=== PATIENT | female | born 1945 | race Caucasian/White ===

== ENCOUNTER 2016-12-20 06:51 | Day surgery (SDC) | payer MEDICARE, OTHER ==
[~2016-12-20 06:51] MED LIST: RINGER'S SOLUTION,LACTATED 1,000 ML IV PRN; ceFAZolin SODIUM 2 GM in DEXTROSE 5 % IN WATER 50 ML IV PRN
[2016-12-20] MEDS ORDERED: RINGER'S SOLUTION,LACTATED 1,000 ML IV ONE (07:30)
[2016-12-20] MEDS ORDERED: RINGER'S SOLUTION,LACTATED 1,000 ML IV PRN (09:51)
[2016-12-20 11:30] VITALS: BP 132/69
--- NOTE | 2016-12-20 18:20 | OR ---
Operative Report - Dictated Report Narrative: OPERATIVE REPORT DATE OF OPERATION: 12/20/2016 PREOPERATIVE DIAGNOSIS: No recent dedicated colon studies. Family history of colon cancer POSTOPERATIVE DIAGNOSIS: 3 mm polyp at 20 cm (pathology pending). Indeterminate area of mucosal change in the rectum (pathology pending). Significant sigmoid diverticulosis OPERATION: Colonoscopy with hot biopsy forceps polypectomy at 20 cm and biopsy in the rectum SURGEON: Adrien Malik MD ANESTHESIA: MAC Tristin Byers CRNA INDICATIONS FOR PROCEDURE: The patient is a 71-year-old female who presents self-referred for colon surveillance. She had diverticulosis and a small focal lymphoid aggregate on colonoscopy in 2011. She does have problems with constipation and uses MiraLAX 17 g po every other day. Her brother had colon cancer at age 40. FINDINGS: 3 mm area of polypoid change at 20 cm. Indeterminant area of mucosal change in the rectum (pathology pending). Sigmoid diverticulosis NARRATIVE OF PROCEDURE: The patient was identified in the holding area, and prior to the administration of anesthetic, a multidisciplinary timeout was observed. With the patient in the left lateral position and after the administration of intravenous sedation, the perineum was inspected. There was no evidence of pilonidal disease or skin breakdown. The external appearance of the anus was normal. Sphincter tone was good. The flexible fiberoptic colonoscope was inserted into the rectum which was insufflated with air. There was a small area of indeterminate mucosal change which was biopsied and then thoroughly destroyed with electrocautery. The area was seen to be complete and hemostatic. The rectal mucosa and submucosal vascular pattern appeared otherwise normal, the prep was seen to be complete. The scope was advanced through the sigmoid colon, which contained numerous non-impacted noninflamed diverticular openings. There was a small area of polypoid change at 20 cm. This was biopsied and then thoroughly destroyed with electrocautery. The site was seen to be complete and hemostatic. The scope was advanced up the descending colon, and around the splenic flexure where the triangular haustral architecture of the transverse colon was seen. The scope was advanced across the transverse colon, around the hepatic flexure to the cecum, where the confluence of tenia and the ileocecal valve were identified. The mucosa at this level appeared normal. The scope was then slowly withdrawn in a circular fashion so that all aspects of colonic mucosa were inspected. The colon was relatively normal in course and caliber. The haustral architecture appeared well preserved throughout with no evidence of external compression. The mucosa and submucosal vascular pattern appeared normal, specifically there was no gross evidence to suggest colitis or inflammatory bowel disease and no AV malformations were seen. The diverticulosis was moderate in degree and confined primarily to the sigmoid colon. No additional polyps were encountered. The scope was gradually withdrawn to the level of the rectum. As much insufflated air as possible was removed. The scope was withdrawn from the patient and the procedure terminated. The patient tolerated the anesthetic and procedure well without complication and was transferred back to the ambulatory surgery area awake and in stable condition. The patient remained stable throughout a period of postoperative observation. She had some initial abdominal discomfort, however this resolved after passing gas. She was able to tolerate by mouth intake, and was up without assistance. I shared the operative findings with the patient and her and she was given copies of the photographs which appear in the medical record. She was discharged home with instructions not to engage in hazardous activity today, but may resume normal activity tomorrow, and advance diet as tolerated. She is to continue those medications as listed in the history and physical exam. I made arrangements to contact her with the biopsy reports and will make additional recommendations for treatment and follow-up based upon those results. Reviewed and electronically signed u
== END 2016-12-20 06:52 | disposition home or self-care (01) ==
LOC: AMB 06:51
PROVIDERS: ATTEND Surgery
PROC: 0D5E8ZZ Destruction of Large Intestine, Via Natural or Artificial Opening Endoscopic (ICD-10-PCS; 2016-12-20)
PROC: 0DBP8ZX Excision of Rectum, Via Natural or Artificial Opening Endoscopic, Diagnostic (ICD-10-PCS; principal; 2016-12-20 08:00)
DX: Z12.11 Encounter for screening for malignant neoplasm of colon (principal); K63.5 Polyp of colon; K57.30 Diverticulosis of large intestine without perforation or abscess without bleeding; Z68.33 Body mass index [BMI] 33.0-33.9, adult; Z80.0 Family history of malignant neoplasm of digestive organs

== ENCOUNTER 2020-06-16 07:50 | Observation (INO) ==
[~2020-06-16 07:50] MED LIST changes: +MORPHINE SULFATE 15 MG TABLET.SA PO PRN; -RINGER'S SOLUTION,LACTATED 1,000 ML IV PRN; +ROPIVACAINE/CLONIDIN/KETOROLAC 50 ML SYRINGE IJ PRN; +TRANEXAMIC ACID 1,000 MG in NORMAL SALINE 100 ML IV PRN; +ceFAZolin SODIUM 1 GM VIAL IV PRN; -ceFAZolin SODIUM 2 GM in DEXTROSE 5 % IN WATER 50 ML IV PRN
[2020-06-16] MEDS: RINGER'S SOLUTION,LACTATED 1,000 ML IV PRN ×2 (08:08→11:12)
--- NOTE | 2020-06-16 09:06 | ANES ---
Anesthesia Pre Procedure Eval Vitals/Labs: Last Vital Signs Temp 36.0 C 06/16/20 07:55 Pulse 69 06/16/20 07:55 Resp 16 06/16/20 07:55 BP 138/71 06/16/20 07:55 Pulse Ox 99 06/16/20 07:55 HOME MEDICATIONS Calcium Carbonate [Tums] 2 tab PO DAILY 02/21/15 [Last Taken 03/16/15] Ferrous Sulfate [Iron] 325 mg PO DAILY 02/21/15 [Last Taken 03/16/15] Polyethylene Glycol 3350 [Miralax] 17 gm PO Q2D 02/21/15 [Last Taken 03/16/15] Multivitamins [Multivitamin Janie] 1 cap PO DAILY 12/08/16 [Last Taken Unknown] Naproxen Sodium [Aleve] 220 mg PO BID PRN 12/08/16 [Last Taken Unknown] alprazolam 0.25 mg tablet 0.25 mg PO TID PRN #60 tab 06/21/18 [Last Taken Unknown] citalopram 10 mg tablet 10 mg PO DAILY #30 tab 12/10/19 [Last Taken Unknown] glucosamine sulfate 2KCl 1,000 mg tablet 1,500 mg PO BID tab 05/13/20 [Last Taken Unknown] Allergies/Adverse Reactions: Allergies Allergy/AdvReac Type Severity Reaction Status Date / Time No Known Allergies Allergy Verified 06/16/20 08:09 - Planned Procedure Planned Procedure: Left Arthroplasty Total Knee Medication List Reviewed:: Yes Allergies Verified: Yes Medical History (Last Reviewed 06/16/20 @ 09:02 by Tristin Byers CRNA) Achilles bursitis or tendinitis Onset Date: 08/10/12 Bilateral thumb pain Onset Date: Unknown Cough Onset Date: 02/03/12 Lipoma Onset Date: 08/10/12 Pharyngitis, acute Onset Date: Unknown Right knee DJD Onset Date: Unknown Sinusitis, acute Onset Date: Unknown Surgical History (Last Reviewed 06/16/20 @ 09:03 by Tristin Byers CRNA) History of appendectomy Onset Date: 1981 History of carpal tunnel release Onset Date: 08/20/05 Gipple- bilateral. History of colonoscopy Onset Date: 12/20/16 King- hyperplastic. Recheck 5 yrs. tubular adenoma, hyperplastic polyp. Recheck 5 yrs.- 10/01/11, 12/20/16 History of hysterectomy Onset Date: 1981 GHULAM with one ovary removed. History of total knee arthroplasty Onset Date: 03/17/15 Alina-right Status post de Quervain's release surgery Onset Date: 08/20/05 Jamey- left hand Status post trigger finger release Onset Date: 01/30/02 Albert-right trigger thumb release H/O cataract extraction Onset Date: ~11/15/19 11/29/19: Dr. [facility] Family History (Last Reviewed 06/16/20 @ 09:03 by Tristin Byers CRNA) Brother Colon polyps had chemo.(age 40) Sister Alive and well Father , age 92- old age Myocardial infarction Pacemaker Mother , age 92 CHF (congestive heart failure) Dementia - Family Anesthesia History Family History:: no untoward family reactions to anesthesia, no familial bleeding tendencies, no family history of clotting disorders, no family history of premature - Airway/Neck/Teeth Within Normal Limits:: Yes Teeth Condition: intact Neck Exam: full range of motion Mallampatti Score: 2 Thyromental (T-M) distance: > 6 cm Mandibulo Hyoid distance: > 3 cm - Respiratory Respiratory Physical: lungs clear Smoking Status: Never smoker Sleep Apnea currently treated: No Sleep Apnea by current assessment: No - Cardiovascular Tolerate Activity: Fair Heart Sounds: S1 & S2, Regular - Gastrointestinal NPO since: 2399 - Anesthesia Assessment and Plan ASA Class: PS, II Anesthesia Type Plan: Block - Post TKA pain relief, Spinal
[2020-06-16] MEDS ORDERED: BUPIVACAINE HCL/EPINEPHRINE 50 ML VIAL ONE (09:24)
[2020-06-16] MEDS ORDERED: MIDAZOLAM HCL/PF 5 MG/ML VIAL ONE (09:24)
[2020-06-16] MEDS ORDERED: PROPOFOL VIAL IV ONE (09:24)
[2020-06-16] MEDS ORDERED: ceFAZolin SODIUM 1 GM VIAL ONE (09:41)
[2020-06-16] MEDS ORDERED: ROPIVACAINE/CLONIDIN/KETOROLAC 50 ML SYRINGE IJ ONE (09:41)
--- NOTE | 2020-06-16 11:32 | OR ---
Operative Report - Dictated Report Narrative: Date: 06/16/2020 Preoperative diagnosis: Left knee degenerative joint disease. Postoperative diagnosis: Left knee degenerative joint disease. Procedure: Left total knee arthroplasty. Surgeon: Doron Fuller M.D. Chief Of Service: Chava Francois PA-C (provided and essential set of skilled, educated hands that assisted with transfer, positioning, prepping, draping, manipulation, retraction, placement of jigs, injection, insertion of implants, irrigation, closure wounds, and dressings all of which could not be performed by the available surgical crew) Anesthesia: Spinal with regional block and local periarticular joint injection. Complications: None Specimens: Bone. Estimated blood loss: Minimal. Tourniquet time: 70 minutes at 325 millimeters of mercury. Retained implants: Depuy Attune size 4 narrow left lugged cemented posterior stabilized femoral component. Size 3 fixed-bearing cemented tibial platform. 4 by 5 millimeter posterior stabilized cross-linked tibial insert. 35 millimeter medialized patella button. Indications: Mrs. Curry is a 75-year-old female who has had longstanding left knee pain and arthrosis. This patient was followed in my clinic for period of time with significant complaints of left knee pain consistent with arthritic changes. She had failed conservative measures including, but not limited to, activity modification, passage of time, medications, and other conservative measures. Patient wished to proceed with surgical treatment. The risks, benefits, and alternatives were discussed in clinic. The risks of , blood clots, bleeding, infection, nerve/tendon blood vessel/ injury, malposition of components, intraoperative fracture, postoperative limited range of motion, persistent pain, failure of components, and need for additional procedures. Patient wished to proceed consent was obtained after answering all questions. Procedure: After marking the correct extremity on the floor, the patient was taken to the operating room. A timeout was performed. IV antibiotics consisting of Ancef were administered prior to the procedure. A regional followed by spinal anesthetic was induced by anesthesia, per my request, on the operative table with all bony prominences well-padded. Clarke catheter was placed, and a bump was placed under the operative side buttock. SCDs and ZAIRA hose were utilized on the nonoperative leg. A well-padded tourniquet was applied to the operative thigh. The operative leg was then pre-scrubbed with alcohol, prepped, and draped in a standard sterile fashion. After exsanguinating the extremity with an Esmarch bandage, the tourniquet was inflated. After marking out the anterior knee for standard incision centered over the patella, the skin was incised and dissected down to the joint retinaculum. The joint retinaculum was marked out as well as the horizontal axis of the patella, and a standard medial parapatellar arthrotomy was then made. The most proximal aspect of the quadriceps tendon and the patella tendon insertion were protected from release. A partial synovectomy was performed as well as a resection of the infrapatellar fat pad. The distal femoral fat pad proximal to the trochlea was also resected using cautery. The soft tissues were elevated off the medial as pect of the proximal tibia using a Martin elevator ensuring that we did not transect the medial collateral ligament. Upon initial evaluation range of motion was approximately 10 degrees to 130 degrees of flexion. There were signs of advanced arthrosis in the medial, lateral, and patellofemoral joint spaces. There were large marginal osteophytes which were removed with a rongeur. The knee was hyperflexed and the patella was tucked laterally. Protecting the surrounding soft tissues with Homans, an entry drill was placed down the femoral canal using Whitesides line for guidance into the entry point. The intramedullary femoral alignment faisal was utilized in order to cut the distal femur in 5 degrees of valgus resecting 10 millimeters of bone. Next the distal femur was sized to a size 4. A posterior referencing guide was utilized to place the distal femoral cutting block in 3 degrees of external rotation. This was pinned into place. The rotation was confirmed both visually and based on anatomic landmarks. The 4 in 1 cutting jig of the appropriate size was utilized in order to make all bony cuts. The gage wing was used to ensure no notching. Retractors were utilized in order to protect surrounding soft tissues. This cut did not result in any excessive notching. We then cut the box centered over the distal femur. This allowed for resection of the anterior and posterior cruciate ligaments. I then turned my attention to the preparation of the tibia. Using an extra medullary tibial alignment faisal, 3 millimeters of bone was resected off the medial articular surface. This was made perpendicular to the mechanical axis of the joint with the alignment faisal centered over the ankle mortise. The alignment faisal was checked and was noted to be parallel to the mechanical axis, centered over the medial one third of the tibial tubercle, paralleling the anterior surface of the tibia. We then turned our attention to the remaining meniscus and soft tissues. These were removed while protecting the surrounding ligaments and soft tissues. The marginal osteophytes off the anterior, posterior, medial, lateral aspects of the femur and tibia were removed. The tibia was sized out to a size 3. Next the tibia was drilled and punched in an externally rotated position. Next the trial femur and a series of tibial inserts were utilized in order to allow for full extension and maximal flexion. It was found that a 5 millimeter insert gave the best range of motion and stability at multiple flexion points as well as at full extension there was less than 2 mm of gapping both medially and laterally. There is minimal anterior translation with the knee at 90 degrees of flexion and no signs of being able to dislocate the knee. The patella was then prepared. The initial thickness was 21 millimeters. This was reamed down to 12 millimeters parallel to the anterior surface of the patella. It was sized out to a size 35 medialized patella button. This was then drilled and trialed. Without any medial restraint the patella tracked appropriately and did not sublux or dislocate. At this point, it was felt these were the appropriate sized implants, and all trials were removed. The standard periarticular joint injection consisting of ropivacaine, Toradol, and epinephrine were injected into the periarticular joint tissues. The bony surfaces were thoroughly irrigated with a pulsatile-suction saline irrigation device. A bone plug from the prior resected anterior chamfer cut was placed into the drill hole at the distal femur. The bony surfaces were then dried in preparation for placement of the implants. The cement was vacuum mixed per the yarn winder's instructions. The cement was placed on the dry bony surfaces and posterior aspect of the implants. The implants were impacted into place, removing all extruded cement. At this point anesthesia administered tranexamic acid per protocol intravenously. The knee was placed in extension with axial loading with the trial insert while the cement cured. Once the cement cured, all remaining extruded cement was removed. The knee was placed through a range of motion with the trial insert to ensure appropriate range of motion and stability. Final range of motion was approximately 0 to 130 degrees. The knee was again thoroughly irrigated with pulsatile saline lavage. The final polyethylene insert was then impacted into place ensuring no retained soft tissues. The remaining periarticular joint injection was injected. A medium Hemovac drain was placed exiting superior laterally. The knee was then placed over a triangle and the arthrotomy was closed with interrupted #1 Vicryl after thoroughly irrigating the joint. The deep and subcutaneous tissues were closed with interrupted 0 and 3-0 Vicryl respectively. Skin was closed with a running subcutaneous 3-0 Monocryl and Prineo Dermabond dressing. 4 x 4's, Sof-Rol, and a full leg Steven wrap were applied. All sponge, needle, blade, and instrument counts were correct prior to closing the wounds. Postoperative condition: The patient was awoken and transferred to the postanesthesia care unit in stable condition. Plan is to be admitted to the inpatient medical/surgical floor postoperatively for 24 hours of IV antibiotics, physical therapy, occupational therapy, and medical comanagement. Patient will be weightbearing as tolerated with range of motion as tolerated. DVT prophylaxis will be with SCDs, ZAIRA hose, and pharmacological anticoagulation. Anticipated hospital stay is approximately 1-3 days.
[2020-06-16] MEDS ORDERED: diphenhydrAMINE HCL 50 MG/ML VIAL IV PRN (11:33)
[2020-06-16] MEDS ORDERED: ONDANSETRON HCL/PF 2 MG/ML VIAL IV PRN (11:33)
[2020-06-16] MEDS ORDERED: DEXTROSE 5%-LACTATED RINGERS 1,000 ML IV PRN (11:33)
[2020-06-16] MEDS ORDERED: MAG HYDROX/ALUMINUM HYD/SIMETH 30 ML UDC PO PRN (11:33)
[2020-06-16] MEDS ORDERED: ZOLPIDEM TARTRATE 5 MG TABLET PO PRN (11:33)
[2020-06-16] MEDS ORDERED: MAGNESIUM HYDROXIDE 30 ML UDC PO PRN (11:33)
[2020-06-16] MEDS ORDERED: MORPHINE SULFATE 2 MG/ML DISP.SYRIN IV PRN (11:33)
[2020-06-16] MEDS ORDERED: ACETAMINOPHEN 500 MG TABLET PO PRN (11:33)
[2020-06-16] MEDS ORDERED: ALPRAZolam 0.25 MG TABLET PO PRN (11:35)
--- NOTE | 2020-06-16 11:58 | ANES ---
Anesthesia Procedure Note Procedure Note: ANESTHESIA PROCEDURE NOTE Date of Procedure: 06/16/2020 Time of procedure: 10:05 AM. Performed by: MARKEL Cook CRNA, MSN Mathematics Department Chair: Susan Simmons RN. Preprocedure diagnosis: Post left total knee arthroplasty pain. Post procedure diagnosis: Same. Procedure: Left adductor Canal Block. Indications: Post left total knee arthroplasty pain relief. Findings: See below. Details of the procedure: The patient was brought to OR #2 and placed in supine position. The patient's left femoral area to the knee was prepped with chlorhexidine and using ultrasound guidance the left femoral artery and nerve was identified and then followed to the level of the adductor canal. Lidocaine 1% was infiltrated to the skin of the intended injection site. Under ultrasound guidance the saphenous nerve was approached with visualization of a 4 inch shielded block needle. Once saphenous nerve was identified with proximity to the needle tip, the saphenous nerve was surrounded with 25 mL bupivacaine 0.5% with 1-200,000 epinephrine. Please see radiology/ultrasound report for details and retained images of the procedure. EBL: 0 Fluids: N/A. Specimen: N/A. Post procedure condition: The patient tolerated the procedure well. No complications were noted. Thank you for this consultation. Tristin Byers CRNA, ARNP, MSN
--- NOTE | 2020-06-16 12:00 | ANES ---
Post Anesthesia Discharge - Transfer of Care Transfer of Care handoff given to nurse: Yes - Discharge from PACU Discharge from PACU when meets criteria: Yes - Comfortable.
[2020-06-16] MEDS: KETOROLAC TROMETHAMINE 15 MG/ML VIAL IV SCH ×2 (12:52→19:13)
[2020-06-16] MEDS: ceFAZolin SODIUM 1 GM in DEXTROSE 5 % IN WATER 100 ML IV SCH ×4 (12:54→19:12)
--- NOTE | 2020-06-16 15:02 | ANES ---
Post Anesthesia Assessment - Vital Signs Vitals: Last Vital Signs Temp 36.5 C 06/16/20 12:45 Pulse 71 06/16/20 13:30 Resp 16 06/16/20 13:15 BP 115/67 06/16/20 13:30 Pulse Ox 99 06/16/20 13:30 Airway Patency: Normal - Mental Status Level Of Consciousness: Awake, Alert, Appropriate - Pain Level Pain Score: 0 - N/V Assessment Nausea/Vomiting Presence: None Dehydration:: No
[2020-06-16] MEDS: oxyCODONE HCL/ACETAMINOPHEN 1 TAB TABLET PO PRN ×2 (17:18→21:20)
[2020-06-16] MEDS ORDERED: SENNOSIDES/DOCUSATE SODIUM 1 TAB TABLET PO SCH (21:00)
[2020-06-16] MEDS: GLUCOSAMINE SULFATE 1000 MG PO SCH (21:20)
[2020-06-17] MEDS: KETOROLAC TROMETHAMINE 15 MG/ML VIAL IV SCH ×3 (00:40→13:48)
[2020-06-17] MEDS: ceFAZolin SODIUM 1 GM in DEXTROSE 5 % IN WATER 100 ML IV SCH ×2 (00:41)
[2020-06-17] MEDS: oxyCODONE HCL/ACETAMINOPHEN 1 TAB TABLET PO PRN ×2 (03:38→10:16)
[2020-06-17 06:19] LABS: Hematocrit 33.6 % (37.0-47.0); Hemoglobin 10.5 gm/dL (12.5-16.0); Mean Cell Volume 95.2 fl (78-100); Mean Corpuscular Hemoglobin 29.7 pg (27-31); Mean Corpuscular Hgb Conc 31.3 g/dl (32-36); Mean Platelet Volume 9.5 fl (8-12.5); Platelet Count 136 K/mm3 (150-450); Red Blood Count 3.53 M/mm3 (4.2-5.4); White Blood Count 5.5 K/mm3 (4.0-10.5)
[2020-06-17 06:32] LABS: Anion Gap 5.4 mmol/L (6.8-13.8); Calcium * 8.3 mg/dL (7.9-10.9); Carbon Dioxide 29.8 mmol/L (24-32.6); Estimated Creat Clear 48.6; Potassium 4.2 mmol/L (3.4-4.6)
[2020-06-17] MEDS: GLUCOSAMINE SULFATE 1000 MG PO SCH (08:29)
[2020-06-17] MEDS ORDERED: POLYETHYLENE GLYCOL 3350 17 GM PACKET PO SCH (09:00)
[2020-06-17] MEDS ORDERED: MULTIVITAMINS 1 CAP CAPSULE PO SCH (09:00)
[2020-06-17] MEDS ORDERED: CITALOPRAM HYDROBROMIDE 10 MG TABLET PO SCH (09:00)
[2020-06-17] MEDS ORDERED: FERROUS SULFATE 325 MG TABLET PO SCH (09:00)
[2020-06-17] MEDS ORDERED: CALCIUM CARBONATE 500 MG TAB.CHEW PO SCH (09:00)
[2020-06-17] MEDS ORDERED: ENOXAPARIN SODIUM 40 MG/0.4 ML SYRG SC SCH (10:33)
--- NOTE | 2020-06-17 11:57 | DS ---
(1) Status post left knee replacement Problem: Acute (2) Anxiety Problem: Chronic (3) Depression Problem: Chronic Date of Discharge:: 06/17/20 Hospital Course: Mrs. Curry was admitted to the floor after undergoing left total knee arthroplasty. Tolerated this well. Was admitted to the floor postoperatively for 24 hours of IV antibiotics, pain control, medical comanagement, and occupational and physical therapy. OT and PT were consulted to assist with activities of daily living and ambulation. Was made weightbearing as tolerated with range of motion as tolerated. Pain was initially controlled with IV regimen. This was transitioned to oral once tolerating a by mouth intake. Was resumed on home diet and medications. A Clarke catheter was inserted in the operating room which was discontinued by postoperative day 1. A drain was placed intraoperatively into the knee which was discontinued on postoperative day 1. Lovenox, SCDs, and ZAIRA hose were utilized for DVT prophylaxis. Vital signs remained stable to the hospital course. Labs were obtained which showed a final hemoglobin of 10.5 grams. BMP was reviewed and was stable. Physical examination throughout the hospital course showed an extremity that had sensation that was intact to light touch, palpable pulses, a benign wound, motor intact to the toes, ankle, and knee. Knee range of motion was approximately 5 degrees to 40 degrees. Once an oral pain regimen was tolerated and physical therapy goals were met, it was felt that they were stable for discharge to home. Instructions: Continue with weightbearing as tolerated and range of motion as tolerated. It is okay to shower and get the wound wet as long as there is no drainage from the wound. Do not bathe or soak the wound. If there is any drainage from the wound keep the wound clean and dry and cover with dry gauze and tape. Change every 2- 3 days as needed if there is any drainage. Cover wound while showering if there is any drainage. Continue with physical therapy. Resume home diet. Report any fever over 101.5 Fahrenheit, uncontrolled pain, increased drainage, foul odor of drainage, new or increased calf pain or shortness of breath, or any other significant complaints. A 325mg daily aspirin will be started after finishing anticoagulation if not allergic. Continue with ZAIRA hose on the operative extremity until instructed otherwise. No driving until instructed otherwise. Follow up in approximately 2-3 weeks. Procedures Performed: see notes below List Procedures: Left total knee arthroplasty Results and Findings: Lab Pending Results 06/17/20 06:16: WBC 5.5, RBC 3.53 L, Hgb 10.5 L, Hct 33.6 L, MCV 95.2, MCH 29.7, MCHC 31.3 L, RDW 12.0, Plt Count 136 L, MPV 9.5 06/17/20 06:16: Sodium 137, Plasma Sodium 137, Potassium 4.2, Chloride 106, Carbon Dioxide 29.8, Anion Gap 5.4 L, BUN 12, Creatinine 0.80, Est GFR (Non-Af Amer) 74, BUN/Creatinine Ratio 15.0, Random Glucose 100, Calcium 8.3 Disposition: Home self-care Condition: Good Discharge Activity: Activity as tolerated, Weight bearing Discharge Diet: General/regular food Referrals: Mary Miramontes MD [Primary Care Provider] - Additional Patient Instructions (free text): Physical Therapy at [facility] outpatient rehab on TuesdayJune 18 at 2 pm. Follow up [facility] Orthopedic office appointment on TuesdayJuly 08 at 8:30am. Prescriptions (Any new or edited meds): Enoxaparin Sodium [Lovenox] 40 mg SC Q24H #7 disp.syrin Transmission Status: Pending to Cover #[id number] oxyCODONE HCL/ACETAMINOPHEN [Percocet 5 MG/325 MG] 1 - 2 tab PO Q4H PRN #40 tab PRN Reason: Moderate Pain (Pain Scale 4-6) Transmission Status: Sent to Cover #[id number] Sennosides/Docusate Sodium [Senokot-S] 2 tab PO HS #60 tab Transmission Status: Pending to Cover #[id number] Complete Home Medications List: Complete Home Medication List: Calcium Carbonate [Tums] 2 tab PO DAILY 02/21/15 Ferrous Sulfate [Iron] 325 mg PO DAILY 02/21/15 Polyethylene Glycol 3350 [Miralax] 17 gm PO Q2D 02/21/15 Multivitamins [Multivitamin Ajnie] 1 cap PO DAILY 12/08/16 Naproxen Sodium [Aleve] 220 mg PO BID PRN 12/08/16 alprazolam 0.25 mg tablet 0.25 mg PO TID PRN #60 tab 06/21/18 citalopram 10 mg tablet 10 mg PO DAILY #30 tab 12/10/19 glucosamine sulfate 2KCl 1,000 mg tablet 1,500 mg PO BID tab 05/13/20 Enoxaparin Sodium [Lovenox] 40 mg SC Q24H #7 disp.syrin 06/17/20 Sennosides/Docusate Sodium [Senokot-S] 2 tab PO HS #60 tab 06/17/20 oxyCODONE HCL/ACETAMINOPHEN [Percocet 5 MG/325 MG] 1 - 2 tab PO Q4H PRN #40 tab 06/17/20 Amb Orders for Discharge: PT Evaluation and Treatment* Facility: [facility], Location: Rehabilitation Services Forms: Patient Portal Registration
[2020-06-17 12:37] VITALS: BP 150/69
== END 2020-06-17 13:12 | disposition home or self-care (01) ==
LOC: SUR 07:50 → MS 07:50
PROVIDERS: ADMIT Orthopaedic Surgery; ATTEND Orthopaedic Surgery